=== PATIENT | female | born 1930 | race Caucasian/White ===

== ENCOUNTER 2017-10-27 11:00 | Outpatient (CLI) | payer MEDICARE, BC | END 2017-10-27 11:01 | disposition home or self-care (01) | LOC: BICMAMMO 11:00 | PROVIDERS: ATTEND Internal Medicine Rheumatology | DX: M81.0 Age-related osteoporosis without current pathological fracture (principal); M85.88 Other specified disorders of bone density and structure, other site | CPT/HCPCS: 77080 ==

== ENCOUNTER 2018-02-19 11:26 | Inpatient (IN) | payer MEDICARE, BC ==
[2018-02-19] MEDS ORDERED: Piperacillin/Tazobactam 3.375 GM VIAL ONE (11:45)
[2018-02-19 12:15] LABS: #Basophils 0.1 thou/uL (0.0-0.2); #Eosinphils 0.1 thou/uL (0.0-0.7); #Lymphocytes 1.1 thou/uL (1.20-3.40); #Monocytes 0.4 thou/uL (0.11-0.59); #Neutrophils 5.8 thou/uL (1.40-6.50); %Basophils 0.8 % (0.0-1.0); %Eosinophils 1.4 % (0.0-10.0); %Lymphocytes 14.3 % (21.0-51.0); %Monocytes 5.8 % (0.0-10.0); %Neutrophils 77.6 % (42.0-75.0); Hemoglobin 12.8 g/dL (12.0-16.0); Mean Corpuscular HGB CONC 31.4 g/dL (32.0-36.0); Mean Corpuscular Hemoglobin 27.9 pg (27.0-31.0); Mean Corpuscular Volume 88.7 fL (78.0-98.0); Mean Platelet Volume 7.8 fL (7.4-10.4); Platelet Count 171 thou/uL (130-400); RBC Distribution Width 12.1 % (11.5-14.5); White Blood Cell (WBC) Count 7.4 thou/uL (4.8-10.8)
[2018-02-19 12:23] LABS: Bilirubin Negative (Negative); Blood, Urine Negative (Negative); Clarity Clear (Clear); Glucose, Urine (Dipstick) Negative (Negative); Protein, Urine (Dipstick) Trace mg/dL (Neg-Trace)
[2018-02-19 12:25] LABS: Nitrite Unable to Interpret (Negative)
[2018-02-19 12:26] LABS: Leukocyte Unable to Interpret (Negative)
[2018-02-19 12:26] LABS: ALT (SGPT) 13 U/L (8-55); AST (SGOT) 18 U/L (5-34); Albumin 4.3 g/dL (3.4-4.8); Alkaline Phosphatase 65 U/L (40-150); Anion Gap 13 mmol/L (10-20); BUN (Urea Nitrogen) 20 mg/dL (9.8-20.1); Bilirubin, Total 0.3 mg/dL (0.2-1.2); CK (CPK) 31 U/L (29-168); Calc. Creatinine Clearance 0 mL/min (70-130); Calcium 11.1 mg/dL (7.8-10.44); Carbon Dioxide 30 mmol/L (23-31); Chloride 103 mmol/L (98-107); Estimated GFR-MDRD 52; Globulin 2.8 g/dL (2.4-3.5); Glucose 202 mg/dL (83-110); Lipase 58 U/L (8-78); Potassium 3.7 mmol/L (3.5-5.1); Protein, Total 7.1 g/dL (6.0-8.3); Sodium 142 mmol/L (136-145)
[2018-02-19 12:27] LABS: RBC/HPF 0-3 HPF (0-3); Squamous Epithelial 0-3 HPF (0-3)
[2018-02-19 12:28] LABS: CKMB 1.6 ng/mL (0-6.6); Troponin I Less than 0.010 ng/mL (< 0.028)
[2018-02-19 12:30] LABS: Hyaline Casts/LPF 0-3 HYALINE CAST LPF (0-3 Hyaline)
[2018-02-19 12:31] LABS: Bacteria/HPF Rare-Few HPF (None Seen)
[2018-02-19] MEDS ORDERED: Iopamidol 370 76% 100 ML VIAL ONE (12:32)
--- NOTE | 2018-02-19 13:13 | CT ---
ABDOMEN AND PELVIC CT SCAN WITHOUT IV CONTRAST: HISTORY: An 88-year-old female with a history of urinary tract infection, lower abdominal and back pain. FINDINGS: The lung bases are clear. Small hiatal hernia. Status post cholecystectomy. Pancreas, spleen, and adrenal glands are unremarkable as evaluated without IV contrast. Tiny punctate calcific focus in th e right kidney, possibly a very small renal calculus or possibly a vascular calcification. Bilateral renal cysts up to 2.6 cm on the right side. No evidence for acute obstruction. There is promine nt lumbar spine levoscoliosis with multilevel up to severe canal and lateral recess stenotic changes of the lumbar spine. There is fairly widespread colonic diverticulosis without evidence for acute di verticulitis. There is an approximately 1.4 cm diameter minimally hyperdense nodular focus in the le ft perineum, probably in the left labia, possibly a Bartholin gland cyst or a sebaceous cyst. IMPRESSION: Small hiatal hernia. Tiny nonobstructing right renal calculus. No acute obstruction. A 1.4 cm d iameter hyperdense nodular focus in the left perineum, probably in the left labial region. Nonspecif ic, possibly a Bartholin gland cyst or a sebaceous cyst. Levoscoliosis of the lumbar spine with mult ilevel up to severe canal and lateral recess stenotic changes. POS: DAVID
[2018-02-19] MEDS ORDERED: Sodium Chloride 0.9% 1,000 ML IV SCH (14:45)
[2018-02-19 15:51] LABS: Lactic Acid 1.1 mmol/L (0.5-2.2)
[2018-02-19 16:40] VITALS: BMI 20.6
[2018-02-19] MEDS ORDERED: Zolpidem Tartrate 5 MG TAB PO PRN (17:39)
[2018-02-19] MEDS ORDERED: Meclizine HCl 25 MG TAB PO PRN (17:39)
[2018-02-19] MEDS ORDERED: Calcium Carbonate 500 MG ChewTAB PO PRN (17:42)
[2018-02-19] MEDS ORDERED: Senokot S 8.6-50 MG TAB PO PRN (17:42)
[2018-02-19] MEDS ORDERED: Ondansetron ODT 4 MG TAB PO PRN (17:42)
[2018-02-19] MEDS ORDERED: Ondansetron PF 4 MG/2 ML Vial IVP PRN (17:42)
[2018-02-19] MEDS ORDERED: hydrALAZINE 20 MG/ML VIAL SLOW IVP PRN ×2 (17:42→17:45)
[2018-02-19] MEDS: traMADol HCl 50 MG TAB PO SCH ×2 (17:47→23:41)
[2018-02-19] MEDS: Sodium Chloride 0.9% 1,000 ML IV SCH (17:49)
[2018-02-19] MEDS: Cefepime 1 GM in Sodium Chloride 0.9% 100 ML IVPB SCH (17:54)
[2018-02-19] MEDS ORDERED: Piperacillin/Tazobactam 3.375 GM in Sodium Chloride 0.9% 100 ML IVPB SCH (20:00)
[2018-02-19] MEDS: Heparin 5,000 UNITS/ML VIAL SC SCH (20:18)
[2018-02-19] MEDS: Acetaminophen 325 MG TAB PO PRN (20:18)
--- NOTE | 2018-02-19 22:26 | HP ---
DATE OF ADMISSION: 02/19/2018 PRIMARY CARE PHYSICIAN: Dr. Gabriela Forrest. PRIMARY NEUROLOGIST: Dr. Dilan Angela. CHIEF COMPLAINT: Abdominal discomfort. HISTORY OF PRESENT ILLNESS: Patient is an 88-year-old female with recurrent UTIs, presented to the e mergency room at [facility] with above complaints. Last week, patient was seen at the Urgent Care and was diagnosed with UTI. She was started on Keflex. She received a phone call from the [facility] ent Care due to resistant UTI. Urine culture from last week showed Pseudomonas aeruginosa. She also has frequent urination. Abdominal pain is mainly in the lower quadrant radiating upwards and to the back. No fever reported. She has not been eating well. She feels generally weak. There was no co nfusion or recent fall reported. She was evaluated by Dr. Dilan Angela last month. She had Pseudo monas fluorescens UTI that was treated with oral ciprofloxacin. She had some issues with urinary ret ention at that time which attributed to ciprofloxacin. Repeat cultures after 10 days was negative at that time. PAST MEDICAL HISTORY: 1. Hypertension. 2. Degenerative joint disease. 3. Psoriasis. 4. Chronic low back pain. 5. Recurrent urinary tract infections. 6. History of fractured pelvis, status post fall. 7. Bilateral moderate carotid stenosis on the CT scan of the neck from last year. PAST SURGICAL HISTORY: 1. Hysterectomy in 1969. 2. Cholecystectomy in 2011. ALLERGIES: Patient is allergic to SULFA. CIPROFLOXACIN causes urinary retention per patient report. FAMILY HISTORY: Mother with CVA. SOCIAL HISTORY: Patient currently lives at the [facility]. No smoking. She makes her own decisio n with the help of her family. She does not have a DPOA. She is FULL code. REVIEW OF SYSTEMS: The following complete review of systems was negative, unless otherwise mentioned in the HPI or below: Constitutional: Weight loss or gain, ability to conduct usual activities. Sk in: Rash, itching. Eyes: Double vision, pain. ENT/Mouth: Nose bleeding, neck stiffness, pain, te nderness. Cardiovascular: Palpitations, dyspnea on exertion, orthopnea. Respiratory: Shortness of breath, wheezing, cough, hemoptysis, fever, or night sweats. Gastrointestinal: Poor appetite, abdo sourav pain, heartburn, nausea, vomiting, constipation, or diarrhea. Genitourinary: Urgency, frequen cy, dysuria, nocturia. Musculoskeletal: Pain, swelling. Neurologic/Psychiatric: Anxiety, depressi on. Allergy/Immunologic: Skin rash, bleeding tendency. PHYSICAL EXAMINATION: VITAL SIGNS: In the emergency room showed temperature 98.3, respirations 16, pulse rate of 73, blood pressure of 178/89 with O2 saturation 98% on room air. GENERAL: An 88-year-old female in no apparent distress. HEENT: Atraumatic, normocephalic. Sclerae anicteric. Moist mucous membrane, no oral lesion. NECK: Supple, no JVD, no carotid bruit. LUNGS: Clear to auscultation bilaterally. No wheezing, rales, or rhonchi. HEART: S1, S2 present. Regular rate and rhythm. No rubs or gallops appreciated, 2/6 systolic murmu r noted over the mitral area. ABDOMEN: Abdomen was soft, mild lower quadrant tenderness, no rebound, guarding, no costovertebral a ngle tenderness. EXTREMITIES: No edema or calf tenderness. NEUROLOGIC: Grossly nonfocal, moves all four extremities. PSYCHIATRY: Alert, awake, oriented x3. SKIN: Warm and dry. LYMPH NODES: No palpable lymph nodes in the neck. PERIPHERAL VASCULAR: Radial pulses palpable bilaterally. MUSCULOSKELETAL: No joint swelling or tenderness. LABORATORY DATA AND X-RAY FINDINGS: 1. CBC showed WBC 7.4 with hemoglobin 12.8, hematocrit 40.8, platelet 171. 2. Chemistries showed sodium 142, potassium 3.7, chloride 103, bicarbonate 30, BUN 20, creatinine 1. 3. Lactic acid 2.1. 4. Troponins were negative. 5. Urine culture from last week showed Pseudomonas aeruginosa. 6. CT scan of the abdomen and pelvis without contrast showed tiny nonobstructing right renal calculu s with small hiatal hernia and 1.4 cm hyperdense nodular focus in the left perineum probably a Bartho ren cyst or sebaceous cyst. 7. EKG by my review showed sinus rhythm with incomplete right bundle branch block with nonspecific S T-T wave changes. IMPRESSION: 1. Pseudomonas aeruginosa urinary tract infection. Please note that patient failed outpatient treat ment. 2. History of recurrent urinary tract infections. 3. Diabetes mellitus, type 2. 4. Hypertension. 5. Osteoporosis. 6. Hypothyroidism. 7. Chronic insomnia. 8. Psoriasis. 9. Chronic pain syndrome. 10. Small hiatal hernia. 11. An 1.4 cm hypodense lesion in the left perineum suspected Bartholin gland cyst or sebaceous cyst . 12. Hypercalcemia, chronic. PLAN: Patient will be monitored on the medical floor. She will be started on cefepime. We will jaimie ck postvoid residual. Gentle intravenous hydration. We will hold oral diuretics for now. Consult p hysical therapy, occupation therapy. We will discuss with [facility] Hospital[facility] regarding possible Jc holin gland cyst or a sebaceous cyst. Fall precautions. Vital signs every shift. Blood and urine c ultures have been sent. CURRENT HOME MEDICATIONS: Tramadol as needed, amlodipine 5 mg daily, ferrous sulfate 325 mg daily, f olic acid 1 mg daily, Lasix 20 mg b.i.d., glipizide 2.5 mg daily, ibandronate 150 mg once a month, le flunomide 10 mg daily, levothyroxine 25 mcg daily, meclizine as needed, metformin 500 mg b.i.d., Ambi en as needed.
[2018-02-20] MEDS: Sodium Chloride 0.9% 1,000 ML IV SCH ×3 (03:29→23:33)
[2018-02-20] MEDS: Acetaminophen 325 MG TAB PO PRN (03:30)
[2018-02-20 04:58] LABS: #Eosinphils 0.2 thou/uL (0.0-0.7); #Lymphocytes 1.1 thou/uL (1.20-3.40); #Monocytes 0.4 thou/uL (0.11-0.59); #Neutrophils 2.2 thou/uL (1.40-6.50); %Basophils 1.3 % (0.0-1.0); %Eosinophils 4.4 % (0.0-10.0); %Lymphocytes 27.6 % (21.0-51.0); %Monocytes 9.8 % (0.0-10.0); Mean Corpuscular HGB CONC 31.8 g/dL (32.0-36.0); Mean Corpuscular Hemoglobin 29.6 pg (27.0-31.0); Mean Corpuscular Volume 92.9 fL (78.0-98.0); Mean Platelet Volume 7.7 fL (7.4-10.4); Platelet Count 153 thou/uL (130-400); RBC Distribution Width 11.9 % (11.5-14.5); Red Blood Cell (RBC) Count 3.73 mill/uL (4.20-5.40); White Blood Cell (WBC) Count 3.9 thou/uL (4.8-10.8)
[2018-02-20 05:02] LABS: Anion Gap 9 mmol/L (10-20); BUN (Urea Nitrogen) 16 mg/dL (9.8-20.1); Calc. Creatinine Clearance 37 mL/min (70-130); Calcium 9.8 mg/dL (7.8-10.44); Carbon Dioxide 26 mmol/L (23-31); Chloride 111 mmol/L (98-107); Estimated GFR-MDRD 68; Glucose 88 mg/dL (83-110); Magnesium 1.6 mg/dL (1.6-2.6); Potassium 3.8 mmol/L (3.5-5.1); Sodium 142 mmol/L (136-145)
[2018-02-20] MEDS: Levothyroxine Sodium 25 MCG TAB PO SCH (05:16)
[2018-02-20] MEDS: traMADol HCl 50 MG TAB PO SCH ×4 (05:16→23:31)
[2018-02-20] MEDS ORDERED: glipiZIDE 5 MG TAB PO SCH (07:30)
[2018-02-20] MEDS: Polyethylene Glycol 3350 17 GM Packet PO SCH (08:22)
[2018-02-20] MEDS: Folic Acid 1 MG TAB PO SCH (08:26)
[2018-02-20] MEDS: Amlodipine 5 MG TAB PO SCH (08:27)
[2018-02-20] MEDS: Leflunomide 10 mg Tablet PO SCH (08:28)
[2018-02-20] MEDS: Aspirin 81 mg Enteric Coated Tablet PO SCH (08:28)
[2018-02-20] MEDS: Heparin 5,000 UNITS/ML VIAL SC SCH ×2 (08:29→20:09)
[2018-02-20] MEDS ORDERED: Magnesium 2 GM/50 ML 2 GM in Premix Bag 1 BAG IVPB SCH (08:45)
[2018-02-20] MEDS ORDERED: Prevnar 13-Val Conj/PF 0.5 ML SYRINGE IM ONE (09:00)
[2018-02-20] MEDS: Cefepime 1 GM in Sodium Chloride 0.9% 100 ML IVPB SCH (17:50)
--- NOTE | 2018-02-20 20:55 | PDOC.PN ---
- Subjective Encounter Start Date: 02/20/18 Encounter Start Time: 12:00 Patient seen and examined for UTI. Abd pain improving. No new complaints. No overnight events - Objective Resuscitation Status: Resuscitation Status FULL:Full Resuscitation MAR Reviewed: Yes Vital Signs & Weight: Vital Signs (12 hours) Temp Pulse Resp BP Pulse Ox 02/20/18 19:18 98.6 F 60 20 166/77 H 98 02/20/18 16:48 98.3 F 60 16 144/67 H 98 02/20/18 12:22 98.0 F 57 L 16 130/70 94 L Weight Admit Weight 105 lb 13.15 oz Weight 105 lb 13.15 oz I&O: 02/19/18 02/20/18 02/21/18 06:59 06:59 06:59 Intake Total 1800 Output Total 700 Balance 1100 Result Diagrams: 02/20/18 04:26 02/20/18 04:26 Phys Exam - Physical Examination Constitutional: NAD Respiratory: no wheezing, no rhonchi Cardiovascular: RRR, no rub Gastrointestinal: soft, non-tender, positive bowel sounds Musculoskeletal: no edema Neurological: moves all 4 limbs Dx/Plan - Plan DVT proph w/SCDs IMPRESSION: 1. Pseudomonas aeruginosa UTI - failed outpatient treatment. 2. History of recurrent urinary tract infections. 3. Diabetes mellitus, type 2. 4. Hypertension. 5. Hypomagnesemia 6. Hypothyroidism. 7. Chronic insomnia. 8. Psoriasis. 9. Chronic pain syndrome. 10. Small hiatal hernia. 11. An 1.4 cm hypodense lesion in the left perineum suspected Bartholin gland cyst or sebaceous cyst. 12. Osteoporosis/Hypercalcemia, chronic. PLAN: Cont Cefepime Cont IVF Replace Magnessium Case d/w Urology Dr Angela - He suggested to discontinue antibiotics after 3 days. Cont current meds as below Review of Systems - Review of Systems Respiratory: negative: Cough, Dry, Shortness of Breath, Hemoptysis, SOB with Excertion, Pleuritic Pain, Sputum, Wheezing Cardiovascular: negative: chest pain, palpitations, orthopnea, paroxysmal nocturnal dyspnea, edema, light headedness, other Gastrointestinal: negative: Nausea, Vomiting, Abdominal Pain, Diarrhea, Constipation, Melena, Hematochezia, Other - Medications/Allergies Allergies/Adverse Reactions: Allergies Allergy/AdvReac Type Severity Reaction Status Date / Time Sulfa (Sulfonamide Allergy Verified 02/19/18 16:55 Antibiotics) sulfamethoxazole Allergy Verified 02/19/18 16:55 [From Bactrim] trimethoprim [From Bactrim] Allergy Verified 02/19/18 16:55 Medications: Current Medications Acetaminophen (Tylenol) 650 mg PO Q4H PRN PRN Reason: Headache/Fever/Mild Pain (1-3) Last Admin: 02/20/18 03:30 Dose: 650 mg Amlodipine Besylate (Norvasc) 5 mg PO DAILY [facility] Last Admin: 02/20/18 08:27 Dose: 5 mg Aspirin (Ecotrin) 81 mg PO DAILY [facility] Last Admin: 02/20/18 08:28 Dose: 81 mg Calcium Carbonate (Tums) 1,000 mg PO Q4H PRN PRN Reason: Heartburn or Indigestion Folic Acid (Folvite) 1 mg PO DAILY [facility] Last Admin: 02/20/18 08:26 Dose: 1 mg Glipizide (Glucotrol) 2.5 mg PO DAILY-AC [facility] Last Admin: 02/20/18 08:27 Dose: 2.5 mg Heparin Sodium (Porcine) (Heparin) 5,000 units SC BID [facility] Last Admin: 02/20/18 20:09 Dose: 5,000 units Hydralazine HCl (Apresoline) 10 mg SLOW IVP Q4H PRN PRN Reason: SBP Greater Than 180 Sodium Chloride (Normal Saline 0.9%) 1,000 mls @ 50 mls/hr IV .Q20H [facility] Last Admin: 02/20/18 11:14 Dose: Not Given Cefepime HCl 1 gm/ Sodium (Chloride) 100 mls @ 200 mls/hr IVPB 1800 [facility] Last Admin: 02/20/18 17:50 Dose: 100 mls Leflunomide (Arava) 10 mg PO DAILY [facility] Last Admin: 02/20/18 08:28 Dose: 10 mg Levothyroxine Sodium (Synthroid) 25 mcg PO 0600 [facility] Last Admin: 02/20/18 05:16 Dose: 25 mcg Meclizine HCl (Antivert) 25 mg PO TID PRN PRN Reason: Dizziness Miscellaneous Medication (Pharmacy To Dose) 1 each IVPB ONE PRN PRN Reason: Pharmacy to dose Stop: 03/01/18 17:43 Ondansetron HCl (Zofran Odt) 4 mg PO Q6H PRN PRN Reason: Nausea/Vomiting Ondansetron HCl (Zofran) 4 mg IVP Q6H PRN PRN Reason: Nausea/Vomiting Polyethylene Glycol (Miralax) 17 gm PO DAILY [facility] Last Admin: 02/20/18 08:22 Dose: 17 gm Senna/Docusate Sodium (Senokot S) 2 tab PO BID PRN PRN Reason: Constipation Tramadol HCl (Ultram) 50 mg PO Q6HR [facility] Last Admin: 02/20/18 17:53 Dose: 50 mg Zolpidem Tartrate (Ambien) 5 mg PO HS PRN PRN Reason: Insomnia
[2018-02-21] MEDS: traMADol HCl 50 MG TAB PO SCH ×2 (05:47→11:59)
[2018-02-21] MEDS: Levothyroxine Sodium 25 MCG TAB PO SCH (05:47)
[2018-02-21] MEDS: Amlodipine 5 MG TAB PO SCH (08:32)
[2018-02-21] MEDS: Leflunomide 10 mg Tablet PO SCH (08:33)
[2018-02-21] MEDS: metFORMIN 500 MG TAB PO SCH ×2 (08:33→16:46)
[2018-02-21] MEDS: Folic Acid 1 MG TAB PO SCH (08:33)
[2018-02-21] MEDS: Polyethylene Glycol 3350 17 GM Packet PO SCH (08:33)
[2018-02-21] MEDS: Aspirin 81 mg Enteric Coated Tablet PO SCH (09:06)
[2018-02-21] MEDS ORDERED: traMADol HCl 50 MG TAB PO PRN (14:20)
[2018-02-21] MEDS ORDERED: Cefepime 1 GM in Sodium Chloride 0.9% 100 ML IVPB SCH ×2 (14:30→18:00)
--- NOTE | 2018-02-21 17:44 | PDOC.PN ---
- Subjective Encounter Start Date: 02/21/18 Encounter Start Time: 14:00 Patient seen and examined for UTI. No new complaints. No overnight events - Objective Resuscitation Status: Resuscitation Status FULL:Full Resuscitation MAR Reviewed: Yes Vital Signs & Weight: Vital Signs (12 hours) Temp Pulse Resp BP BP Pulse Ox 02/21/18 16:31 98.3 F 60 16 148/77 H 96 02/21/18 12:47 98.2 F 60 14 148/73 H 99 02/21/18 08:32 54 L 154/66 H 02/21/18 08:30 95 02/21/18 08:04 98.2 F 54 L 16 154/66 H 95 Weight Admit Weight 105 lb 13.15 oz Weight 105 lb 13.15 oz I&O: 02/20/18 02/21/18 02/22/18 06:59 06:59 06:59 Intake Total 1800 1350 Output Total 700 Balance 1100 1350 Result Diagrams: 02/20/18 04:26 02/20/18 04:26 Phys Exam - Physical Examination Constitutional: NAD Respiratory: no wheezing, no rhonchi Cardiovascular: RRR, no rub Gastrointestinal: soft, non-tender, positive bowel sounds Musculoskeletal: no edema Neurological: moves all 4 limbs Dx/Plan - Plan DVT proph w/SCDs IMPRESSION: 1. Pseudomonas aeruginosa UTI - failed outpatient treatment. 2. History of recurrent urinary tract infections. 3. Diabetes mellitus, type 2. 4. Hypertension. 5. Hypomagnesemia 6. Hypothyroidism. 7. Chronic insomnia. 8. Psoriasis. 9. Chronic pain syndrome. 10. Small hiatal hernia. 11. An 1.4 cm hypodense lesion in the left perineum suspected Bartholin gland cyst or sebaceous cyst. 12. Osteoporosis/Hypercalcemia, chronic. PLAN: Cont Cefepime DC IVF Consult ID Cont current meds as below Microbiology 02/19/18 12:12 Urine clean catch Urine Culture - Preliminary Gram Negative Jean-Paul 02/19/18 12:03 Venous blood - Right Arm Blood Culture - Preliminary NO GROWTH AT 48 HOURS 02/19/18 11:53 Venous blood - Left Arm Blood Culture - Preliminary NO GROWTH AT 48 HOURS Review of Systems - Review of Systems Cardiovascular: negative: chest pain, palpitations, orthopnea, paroxysmal nocturnal dyspnea, edema, light headedness, other Gastrointestinal: negative: Nausea, Vomiting, Abdominal Pain, Diarrhea, Constipation, Melena, Hematochezia, Other - Medications/Allergies Allergies/Adverse Reactions: Allergies Allergy/AdvReac Type Severity Reaction Status Date / Time Sulfa (Sulfonamide Allergy Verified 02/19/18 16:55 Antibiotics) sulfamethoxazole Allergy Verified 02/19/18 16:55 [From Bactrim] trimethoprim [From Bactrim] Allergy Verified 02/19/18 16:55 Medications: Current Medications Acetaminophen (Tylenol) 650 mg PO Q4H PRN PRN Reason: Headache/Fever/Mild Pain (1-3) Last Admin: 02/20/18 03:30 Dose: 650 mg Amlodipine Besylate (Norvasc) 5 mg PO DAILY [facility] Last Admin: 02/21/18 08:32 Dose: 5 mg Aspirin (Ecotrin) 81 mg PO DAILY [facility] Last Admin: 02/21/18 09:06 Dose: 81 mg Calcium Carbonate (Tums) 1,000 mg PO Q4H PRN PRN Reason: Heartburn or Indigestion Folic Acid (Folvite) 1 mg PO DAILY [facility] Last Admin: 02/21/18 08:33 Dose: 1 mg Hydralazine HCl (Apresoline) 10 mg SLOW IVP Q4H PRN PRN Reason: SBP Greater Than 180 Sodium Chloride (Normal Saline 0.9%) 1,000 mls @ 50 mls/hr IV .Q20H [facility] Last Admin: 02/20/18 23:33 Dose: 1,000 mls Cefepime HCl 1 gm/ Sodium (Chloride) 100 mls @ 200 mls/hr IVPB 1800 [facility] Last Admin: 02/21/18 16:47 Dose: 100 mls Leflunomide (Arava) 10 mg PO DAILY [facility] Last Admin: 02/21/18 08:33 Dose: 10 mg Levothyroxine Sodium (Synthroid) 25 mcg PO 0600 [facility] Last Admin: 02/21/18 05:47 Dose: 25 mcg Meclizine HCl (Antivert) 25 mg PO TID PRN PRN Reason: Dizziness Metformin HCl (Glucophage) 500 mg PO BID[facility] Last Admin: 02/21/18 16:46 Dose: 500 mg Miscellaneous Medication (Pharmacy To Dose) 1 each IVPB ONE PRN PRN Reason: Pharmacy to dose Stop: 03/01/18 17:43 Ondansetron HCl (Zofran Odt) 4 mg PO Q6H PRN PRN Reason: Nausea/Vomiting Ondansetron HCl (Zofran) 4 mg IVP Q6H PRN PRN Reason: Nausea/Vomiting Polyethylene Glycol (Miralax) 17 gm PO DAILY [facility] Last Admin: 02/21/18 08:33 Dose: 17 gm Senna/Docusate Sodium (Senokot S) 2 tab PO BID PRN PRN Reason: Constipation Tramadol HCl (Ultram) 50 mg PO Q6HR PRN PRN Reason: Pain Zolpidem Tartrate (Ambien) 5 mg PO HS PRN PRN Reason: Insomnia
[2018-02-21] MEDS: Acetaminophen 325 MG TAB PO PRN (21:13)
[2018-02-22 04:14] LABS: #Eosinphils 0.3 thou/uL (0.0-0.7); #Lymphocytes 1.1 thou/uL (1.20-3.40); #Monocytes 0.5 thou/uL (0.11-0.59); #Neutrophils 2.4 thou/uL (1.40-6.50); %Basophils 0.4 % (0.0-1.0); %Lymphocytes 26.5 % (21.0-51.0); %Monocytes 11.6 % (0.0-10.0); %Neutrophils 55.4 % (42.0-75.0); Hemoglobin 10.3 g/dL (12.0-16.0); Mean Corpuscular HGB CONC 31.7 g/dL (32.0-36.0); Mean Corpuscular Hemoglobin 29.9 pg (27.0-31.0); Mean Corpuscular Volume 94.3 fL (78.0-98.0); Mean Platelet Volume 7.8 fL (7.4-10.4); Platelet Count 143 thou/uL (130-400); RBC Distribution Width 11.9 % (11.5-14.5); Red Blood Cell (RBC) Count 3.44 mill/uL (4.20-5.40); White Blood Cell (WBC) Count 4.3 thou/uL (4.8-10.8)
[2018-02-22 04:25] LABS: Anion Gap 7 mmol/L (10-20); BUN (Urea Nitrogen) 19 mg/dL (9.8-20.1); Calc. Creatinine Clearance 40 mL/min (70-130); Calcium 9.4 mg/dL (7.8-10.44); Carbon Dioxide 30 mmol/L (23-31); Chloride 109 mmol/L (98-107); Estimated GFR-MDRD 75; Glucose 95 mg/dL (83-110); Magnesium 1.6 mg/dL (1.6-2.6); Potassium 4.1 mmol/L (3.5-5.1); Sodium 142 mmol/L (136-145)
[2018-02-22] MEDS: Levothyroxine Sodium 25 MCG TAB PO SCH (06:14)
[2018-02-22] MEDS ORDERED: Magnesium 2 GM/50 ML 2 GM in Premix Bag 1 BAG IVPB SCH (08:00)
[2018-02-22] MEDS: metFORMIN 500 MG TAB PO SCH (08:38)
[2018-02-22] MEDS: Polyethylene Glycol 3350 17 GM Packet PO SCH (08:39)
[2018-02-22] MEDS: Aspirin 81 mg Enteric Coated Tablet PO SCH (08:39)
[2018-02-22] MEDS: Amlodipine 5 MG TAB PO SCH (08:39)
[2018-02-22] MEDS: Folic Acid 1 MG TAB PO SCH (08:39)
[2018-02-22] MEDS: Leflunomide 10 mg Tablet PO SCH (08:39)
--- NOTE | 2018-02-22 15:38 | CON ---
DATE OF CONSULTATION: 02/22/2018 REASON FOR CONSULTATION: Possible urinary tract infection. HISTORY OF PRESENT ILLNESS: An 88-year-old with history of hypertension, DJD, psoriasis. She was brought in because of development of pain in the perineal area. When I tried to get her to be more precise, she was not clear if it was pain during urination or just pain in the outside area of the vaginal introitus. She was seen elsewhere and had urine culture apparently Pseudomonas aeruginosa was retrieved to this organism was melendez susceptible and she was treated with quinolones without improvement. There is no reported fever or chills and there are some concerns with urinary retention in the past. On arrival, she had a BP of 170/80, O2 sat 98% with a respiratory rate 16, pulse of 73. The exam was fairly unremarkable as described in the admit note and initial laboratory results with a white cell count 7.4 with a normal differential, maybe mild neutrophil percentage increase, the total neutrophil count was normal. The chemistry was not particularly remarkable except for hyperglycemia and some elevation in calcium. Urinalysis with 4-6 wbc's and rare urine bacteria. She was treated with antimicrobial therapy with cefepime and she noted improvement of the perineal pain. A CT scan was done on admission on 02/19/2018 and this showed a 1.4 cm hyperdense nodular focus in the left perineum, probably in the left labial region. Currently, Ms. Lake is feeling well. She denies any pain. No headaches, no visual symptoms, sore throat, odynophagia, dysphagia, no cough or sputum production or chest pain, no abdominal pain or diarrhea. No joint symptoms other than her usual chronic osteoarthrosis. PAST MEDICAL HISTORY: Includes hypertension, DJD, psoriasis, back pain, history of UTIs, although the patient does not recall any prior UTIs, pelvis fracture, carotid stenosis. PAST SURGICAL HISTORY: Hysterectomy, cholecystectomy. ALLERGIES: SULFA DRUGS with rash. CIPROFLOXACIN reportedly caused urinary retention. FAMILY HISTORY: CVA. SOCIAL HISTORY: Never a smoker. Lives in assisted living. MEDICATION LIST: Tylenol, Norvasc, Ecotrin, Tums, cefepime, Folvite, Apresoline , Arava, Synthroid, Antivert, Glucophage, Zofran, Marlex, Senokot, Ultram, Ambien. PHYSICAL EXAMINATION: VITAL SIGNS: In the hospital, she has been afebrile. Other vital signs with mild elevation in systolic blood pressure. SKIN: Not remarkable. I evaluated her vulvar area. There was no evidence of erythema or swelling. Obviously she did have a Bartholin gland cyst which is not there anymore. No lymphadenopathy. HEENT: Noncontributory. LUNGS: Clear. HEART: Normal. ABDOMEN: Soft, not distended. EXTREMITIES: She moves all extremities equally. NEUROLOGIC: Cognitive function appears to be intact. LABORATORY DATA: The repeat white cell count 4.3, hemoglobin 10.3, platelets 143 with normal differential. ASSESSMENT: 1. Hypertension. 2. History of prior urinary tract infections. 3. Perineal pain which has resolved. 4. Fairly unremarkable urinalysis. 5. Urinary tract colonization versus a true invasive infection. DISCUSSION: In view of the findings in the CT scan and now the absence of any findings there in the physical exam, it is likely the patient had a distended Bartholin gland due to obstruction which resolved spontaneously. I do not see any evidence of inflammation at this point. This is the likely reason for the patient's reported pain and I would advise discontinuation of antimicrobial therapy at this point in time and follow up in the outpatient setting. I do not see any evidence to suggest urinary retention at this point in time. JERRODD
[2018-02-22 17:47] VITALS: BP 150/81; TEMP 97.9
--- NOTE | 2018-02-23 07:16 | DIS ---
DATE OF ADMISSION: 02/19/2018 DATE OF DISCHARGE: 02/22/2018 DISCHARGE DISPOSITION: Home. FOLLOWUP: Follow up with primary care physician, Dr. Gabriela Forrest in 1 week. Follow up with Dr. Madalyn Angela in 2 weeks. ALLERGIES: Patient is allergic to SULFA. DISCHARGE MEDICATIONS: Same as admission medications. BRIEF HOSPITAL COURSE: The patient is an 88-year-old female with recurrent UTIs, presented to the [facility] with abdominal discomfort. She was recently at an urgent care where she was found to have a P seudomonas aeruginosa UTI. She received a phone call from the urgent care to get admitted to the [facility]. Please refer to the history and physical dated 02/19/2018 for further details. The patient was admitted to the hospital with a diagnosis of Pseudomonas aeruginosa UTI. She was sta rted on cefepime. Her abdominal pain improved the next day. A CT scan of the abdomen noncontrast in the emergency room showed a 1.4 cm nodular focus in the left perineum, probably a Bartholin cyst. S he showed good improvement with antibiotics. She was seen by Infectious Disease, Dr. Stewart. Dr. Jamie weir recommended discontinuation of the antibiotics. She was advised to follow up with [employer] [facility] for her Bar tholin cyst. FINAL DIAGNOSES: 1. Pseudomonas aeruginosa urinary tract infection. Patient completed 3 days of cefepime. Antibiot ics have been discontinued per Infectious Disease recommendation. 2. History of recurrent urinary tract infections. 3. Diabetes mellitus type 2. 4. Hypertension. 5. Hypomagnesemia. 6. Hypothyroidism. 7. Chronic insomnia. 8. Psoriasis. 9. Chronic pain syndrome. 10. Small hiatal hernia. 11. A 1.4 cm hypodense lesion in the left perineum suspected to be a Bartholin gland cyst or sebaceo us cyst. An outpatient [employer] [employer] [facility] followup is recommended. 12. Osteoporosis. 13. Chronic hypercalcemia. Total time coordinating the discharge of this patient was 37 minutes.
== END 2018-02-22 15:40 | disposition home or self-care (01) | DRG 690 ==
LOC: SCSER 11:26 → T4-A 14:30
PROVIDERS: ADMIT Internal Medicine; ATTEND Internal Medicine
DX: N39.0 Urinary tract infection, site not specified (principal); B96.5 Pseudomonas (aeruginosa) (mallei) (pseudomallei) as the cause of diseases classified elsewhere; E11.9 Type 2 diabetes mellitus without complications; I10 Essential (primary) hypertension; E83.42 Hypomagnesemia; E03.9 Hypothyroidism, unspecified; F51.04 Psychophysiologic insomnia; L40.9 Psoriasis, unspecified; G89.4 Chronic pain syndrome; K44.9 Diaphragmatic hernia without obstruction or gangrene; M81.0 Age-related osteoporosis without current pathological fracture; E83.52 Hypercalcemia; Z91.81 History of falling; F41.9 Anxiety disorder, unspecified; M19.90 Unspecified osteoarthritis, unspecified site; Z87.81 Personal history of (healed) traumatic fracture; N75.0 Cyst of Bartholin's gland; L72.3 Sebaceous cyst
CPT/HCPCS: 36415; 36416; 74176; 80048; 80053; 81003; 81015; 82553; 83605; 83690; 83735; 84484; 85025; 87040; 87077; 87086; 87186; 93005; G8978-GP-CJ; G8979-GP-CJ; G8980-GP-CJ; G8987-GO-CI; G8988-GO-CI; G8989-GO-CI; J0692; J1644; J2270; J2543; J7050

== ENCOUNTER 2019-09-12 09:05 | Emergency (ER) | payer MEDICARE, BC ==
[2019-09-12 10:12] LABS: #Eosinphils 0.2 thou/uL (0.0-0.7); #Lymphocytes 0.9 thou/uL (1.20-3.40); #Monocytes 0.4 thou/uL (0.11-0.59); #Neutrophils 3.1 thou/uL (1.40-6.50); %Basophils 0.8 % (0.0-1.0); %Eosinophils 3.5 % (0.0-10.0); %Lymphocytes 19.8 % (21.0-51.0); %Monocytes 8.2 % (0.0-10.0); %Neutrophils 67.7 % (42.0-75.0); Hemoglobin 11.8 g/dL (12.0-16.0); Mean Corpuscular HGB CONC 33.5 g/dL (32.0-36.0); Mean Corpuscular Hemoglobin 31.2 pg (27.0-31.0); Mean Corpuscular Volume 93.2 fL (78.0-98.0); Mean Platelet Volume 8.5 fL (7.4-10.4); Platelet Count 164 thou/uL (130-400); RBC Distribution Width 12.4 % (11.5-14.5); Red Blood Cell (RBC) Count 3.77 mill/uL (4.20-5.40); White Blood Cell (WBC) Count 4.6 thou/uL (4.8-10.8)
[2019-09-12 10:34] LABS: ALT (SGPT) 9 U/L (8-55); AST (SGOT) 15 U/L (5-34); Albumin 3.6 g/dL (3.4-4.8); Alkaline Phosphatase 70 U/L (40-110); Anion Gap 12 mmol/L (10-20); BUN (Urea Nitrogen) 15 mg/dL (9.8-20.1); Bilirubin, Total 0.4 mg/dL (0.2-1.2); Calc. Creatinine Clearance 0 mL/min (70-130); Calcium 10.3 mg/dL (7.8-10.44); Carbon Dioxide 25 mmol/L (23-31); Chloride 109 mmol/L (98-107); Estimated GFR-MDRD 68; Globulin 2.6 g/dL (2.4-3.5); Glucose 105 mg/dL (83-110); Potassium 4.1 mmol/L (3.5-5.1); Protein, Total 6.2 g/dL (6.0-8.3); Sodium 142 mmol/L (136-145)
[2019-09-12] MEDS ORDERED: Meclizine HCl 25 MG TAB ONE (11:38)
[2019-09-12 11:51] LABS: Bacteria/HPF 3+ HPF (None Seen); Bilirubin Negative (Negative); Blood, Urine 1+ (Negative); Clarity Clear (Clear); Glucose, Urine (Dipstick) Normal (Negative); Leukocyte 500 Leu/uL (Negative); Nitrite 2+ (Negative); Protein, Urine (Dipstick) Negative (Neg-Trace); RBC/HPF 21-50 HPF (0-3); Squamous Epithelial 0-3 HPF (0-3); Urobilinogen Normal mg/dL (Less than 2)
[2019-09-12] MEDS ORDERED: cefTRIAXone\\ROCEPHIN 1 GM VIAL ONE (12:38)
== END 2019-09-12 14:00 | disposition home or self-care (01) ==
LOC: ERS 09:05
DX: R55 Syncope and collapse (principal); I10 Essential (primary) hypertension; E11.9 Type 2 diabetes mellitus without complications; F41.9 Anxiety disorder, unspecified; Z79.84 Long term (current) use of oral hypoglycemic drugs; Z79.891 Long term (current) use of opiate analgesic; Z79.899 Other long term (current) drug therapy
CPT/HCPCS: 36415; 51701; 80053; 81003; 81015; 85025; 87077; 87086; 87186; 93005; 96361; 96365; J0696

== ENCOUNTER 2019-11-02 12:00 | Observation (INO) | payer MEDICARE, BC, OTHER ==
[2019-11-02 12:30] LABS: #Eosinphils 0.1 thou/uL (0.0-0.7); #Lymphocytes 0.9 thou/uL (1.20-3.40); #Monocytes 0.6 thou/uL (0.11-0.59); #Neutrophils 7.3 thou/uL (1.40-6.50); %Basophils 0.2 % (0.0-1.0); %Eosinophils 0.6 % (0.0-10.0); %Lymphocytes 9.7 % (21.0-51.0); %Neutrophils 82.4 % (42.0-75.0); Hemoglobin 12.1 g/dL (12.0-16.0); Mean Corpuscular HGB CONC 32.4 g/dL (32.0-36.0); Mean Corpuscular Hemoglobin 30.3 pg (27.0-31.0); Mean Corpuscular Volume 93.6 fL (78.0-98.0); Mean Platelet Volume 8.5 fL (7.4-10.4); Platelet Count 165 thou/uL (130-400); RBC Distribution Width 12.7 % (11.5-14.5); White Blood Cell (WBC) Count 8.8 thou/uL (4.8-10.8)
--- NOTE | 2019-11-02 12:46 | RAD ---
PORTABLE CHEST: HISTORY: Syncope, fall. FINDINGS: The patient is rotated on this exam. Heart size is enlarged. There are atherosclerotic changes of t he aorta. The lungs are clear of infiltrates. No signs of failure. The bones are demineralized. IMPRESSION: Cardiomegaly. POS: MORIAH
[2019-11-02 12:51] LABS: ALT (SGPT) 7 U/L (8-55); AST (SGOT) 15 U/L (5-34); Albumin 3.8 g/dL (3.4-4.8); Alkaline Phosphatase 88 U/L (40-110); Anion Gap 12 mmol/L (10-20); BUN (Urea Nitrogen) 17 mg/dL (9.8-20.1); Bilirubin, Total 0.5 mg/dL (0.2-1.2); CK (CPK) 95 U/L (29-168); Calc. Creatinine Clearance 0 mL/min (70-130); Calcium 9.9 mg/dL (7.8-10.44); Carbon Dioxide 27 mmol/L (23-31); Chloride 106 mmol/L (98-107); Estimated GFR-MDRD 61; Globulin 2.4 g/dL (2.4-3.5); Glucose 121 mg/dL (83-110); Potassium 4.5 mmol/L (3.5-5.1); Protein, Total 6.2 g/dL (6.0-8.3); Sodium 140 mmol/L (136-145)
[2019-11-02 13:14] LABS: CKMB 4.3 ng/mL (0-6.6)
[2019-11-02] MEDS ORDERED: Acetaminophen 325 MG TAB PO PRN (13:41)
[2019-11-02] MEDS ORDERED: Ondansetron PF 4 MG/2 ML Vial IVP PRN (13:41)
[2019-11-02] MEDS ORDERED: Ondansetron ODT 4 MG TAB PO PRN (13:41)
[2019-11-02] MEDS ORDERED: Calcium Carbonate 500 MG ChewTAB PO PRN (13:41)
--- NOTE | 2019-11-02 13:41 | PDOC.HHP ---
Hospitalist HPI - History of Present Illness Syncope/CP History of Present Illness: PCP - Enoch Fernandez is poor historian - History limited. Shreya Lake is an 89 year old female with HTN, HLD and DM2 who presents to the ED for an episode of syncope. She reports that the day before yesterday (2019) she felt dizzy when she was getting her breakfast in the half-way she stays in. At 8 AM she went to go retrieve her food and she ate her meal. One hour later she says she began to feel dizzy and was then lying down on the couch at her half-way. Unclear whether she lost consciousness. Per daughter , Pt had 5 episodes of fall in the last 4-5 weeks. No fever, sick contacts, palpitations or recent immobilization reported. Again, Pt is a very poor historian. ED Course: VITAL SIGNS Sat Nov 02, 2019 12:03 CHANDRA Nogueira Oswaldo BP: 177/85, MAP: 115, Pulse: 90, Resp: 20, Temp: 98.9 (Oral), O2 sat: 97 on ( Room Air) Hospitalist ROS - Review of Systems Constitutional: denies: fever, chills, sweats, weakness, malaise, other Eyes: reports: vision change. denies: pain, conjunctivae inflammation, eyelid inflammation, redness, other Respiratory: denies: cough, dry, shortness of breath, hemoptysis, SOB with excertion, pleuritic pain, sputum, wheezing, other Cardiovascular: reports: edema (bilateral swelling in both legs). denies: chest pain, palpitations, orthopnea, paroxysmal noc. dyspnea, light headedness, other Gastrointestinal: denies: nausea, vomiting, abdominal pain, diarrhea, constipation, melena, hematochezia, other Neurological: denies: weakness, numbness, change in speech, confusion, seizures All other systems reviewed; all pertinent +/- noted in HPI/Subj - Medication Medications: levothyroxine oral Sat Nov 02, 2019 12:59 CHANDRA Nogueira Oswaldo tablet : Strength - 25 mcg : ORAL Patient Dose: 1 tab(s) Oral once a day. ferrous sulfate Sat Nov 02, 2019 12:59 CHANDRA Nogueira Oswaldo tablet : Strength - 200 mg : ORAL Patient Dose: 25 mg Oral once a day. furosemide oral Sat Nov 02, 2019 12:59 CHANDRA Nogueira, Asad tablet : Strength - 20 mg : ORAL Patient Dose: 20 mg Oral 2 times a day (before meals). amLODIPine Sat Nov 02, 2019 12:59 CHANDRA Nogueira, Asad tablet : Strength - 5 mg : ORAL Patient Dose: 5 mg Oral once a day. metFORMIN Sat Nov 02, 2019 12:59 CHANDRA Nogueira, Asad tablet : Strength - 500 mg : ORAL Patient Dose: 500 mg Oral 2 times a day. glipiZIDE Sat Nov 02, 2019 12:59 CHANDRA Nogueira, Asad tablet extended release 24hr : Strength - 2.5 mg : ORAL Patient Dose: 2.5 mg Oral once a day. leflunomide Sat Nov 02, 2019 12:59 CHANDRA Nogueira, Asad tablet : Strength - 10 mg : ORAL Patient Dose: 10 mg Oral once a day. folic acid oral Sat Nov 02, 2019 13:00 CHANDRA Nogueira, Asad tablet : Strength - 1 mg : ORAL Patient Dose: 1 mg Oral once a day. Hospitalist History - Past Medical History Source: patient, family Other Medical History: PAST MEDICAL HISTORY: 1. Hypertension. 2. Degenerative joint disease. 3. Psoriasis. 4. Chronic low back pain. 5. Recurrent urinary tract infections. 6. History of fractured pelvis, status post fall. 7. Bilateral moderate carotid stenosis. 8. Anxiety. 9. Chronic Vertigo PAST SURGICAL HISTORY: 1. Hysterectomy in 1969. 2. Cholecystectomy in 2011. ALLERGIES: Patient is allergic to SULFA. CIPROFLOXACIN causes urinary retention per patient report. FAMILY HISTORY: Mother with CVA. SOCIAL HISTORY: Patient currently lives in Assisted living facilty. No smoking. She makes her own decision with the help of her family. 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 She has not completed [email or web address] paperwork. - Exam General Appearance: NAD, awake alert Eye: PERRL ENT: normocephalic atraumatic Neck: supple, symmetric, no JVD Heart: RRR, no murmur, no gallops, no rubs, normal peripheral pulses Respiratory: CTAB, no wheezes, no rales, no ronchi, normal chest expansion Gastrointestinal: soft, non-tender, non-distended, normal bowel sounds, no palpable masses, no hepatomegaly, no splenomegaly, no bruit, no guarding, no rigidity Extremities: no cyanosis, no clubbing, 2+ LE edema Skin: normal turgor Neurological: cranial nerve grossly intact, normal sensation to touch, no focal deficits Musculoskeletal: normal tone, normal strength, no muscle wasting Psychiatric: normal affect, normal behavior, A&O x 3, oriented to person, oriented to place, oriented to time Hospitalist Results - Labs Result Diagrams: 11/02/19 12:12 11/02/19 12:12 Lab results: WBC 8.8 thou/uL (4.8-10.8) 11/02/19 12:12 Hgb 12.1 g/dL (12.0-16.0) 11/02/19 12:12 Hct 37.4 % (36.0-47.0) 11/02/19 12:12 MCV 93.6 fL (78.0-98.0) 11/02/19 12:12 Plt Count 165 thou/uL (130-400) 11/02/19 12:12 Neutrophils % 82.4 % (42.0-75.0) H 11/02/19 12:12 Sodium 140 mmol/L (136-145) 11/02/19 12:12 Potassium 4.5 mmol/L (3.5-5.1) 11/02/19 12:12 Chloride 106 mmol/L (98-107) 11/02/19 12:12 Carbon Dioxide 27 mmol/L (23-31) 11/02/19 12:12 BUN 17 mg/dL (9.8-20.1) 11/02/19 12:12 Creatinine 0.87 mg/dL (0.6-1.1) 11/02/19 12:12 Glucose 121 mg/dL (83-110) H 11/02/19 12:12 Calcium 9.9 mg/dL (7.8-10.44) 11/02/19 12:12 Total Bilirubin 0.5 mg/dL (0.2-1.2) 11/02/19 12:12 AST 15 U/L (5-34) 11/02/19 12:12 ALT 7 U/L (8-55) L 11/02/19 12:12 Alkaline Phosphatase 88 U/L (40-110) 11/02/19 12:12 Creatine Kinase 95 U/L (29-168) 11/02/19 12:12 CK-MB (CK-2) 4.3 ng/mL (0-6.6) 11/02/19 12:12 Troponin I 0.040 ng/mL (< 0.028) H 11/02/19 12:12 Serum Total Protein 6.2 g/dL (6.0-8.3) 11/02/19 12:12 Albumin 3.8 g/dL (3.4-4.8) 11/02/19 12:12 Additional comment: Laboratory Tests 11/02/19 12:12 Troponin I 0.040 H - EKG Interpretation EKG: SRVIRIT - reviewed by me - Radiology Interpretation CT scan - head Status: image reviewed by me Additional Comment: CT OF BRAIN PERFORMED WITHOUT CONTRAST ENHANCEMENT: 11/02/19 HISTORY: Fall, syncope. The ventricular and cisternal system shows mild atrophy. There is no signs of intracerebral hemorrha ge or extraaxial fluid collections. Mastoid air cells and visualized sinuses are clear. IMPRESSION: No acute intracranial abnormalities. Chest x-ray Status: image reviewed by me Additional Comment: PORTABLE CHEST: HISTORY: Syncope, fall. FINDINGS: The patient is rotated on this exam. Heart size is enlarged. There are atherosclerotic changes of t he aorta. The lungs are clear of infiltrates. No signs of failure. The bones are demineralized. IMPRESSION: Cardiomegaly. Hospitalist H&P A/P - Plan Plan: Syncope/Recurrent falls - ?Cardiogenic CP HTN DM2 Hypothyroidism Chronic pain syndrome History of recurrent urinary tract infections Chronic insomnia Psoriasis Osteoporosis PLAN: Admit to Tele Serial troponins Vitals Q4h Orthostatic vitals QAM Verify home meds Echo Carotid Doppler PT/OT Fall precautions PRN HTN meds Insulin sliding scale
[2019-11-02] MEDS ORDERED: Senokot S 8.6-50 MG TAB PO PRN (13:57)
[2019-11-02] MEDS ORDERED: Nitroglycerin 0.4 MG TAB (25 Tab Bottle) PO PRN (14:06)
--- NOTE | 2019-11-02 14:12 | CT ---
CT OF BRAIN PERFORMED WITHOUT CONTRAST ENHANCEMENT: 11/02/19 HISTORY: Fall, syncope. The ventricular and cisternal system shows mild atrophy. There is no signs of intracerebral hemorrha ge or extraaxial fluid collections. Mastoid air cells and visualized sinuses are clear. IMPRESSION: No acute intracranial abnormalities. POS: MROIAH
[2019-11-02] MEDS ORDERED: Sodium Chloride 0.9% 1,000 ML IV SCH (14:15)
[2019-11-02] MEDS ORDERED: Dextrose 50% Abboject 50 ML SYRINGE SLOW IVP PRN (14:16)
[2019-11-02] MEDS ORDERED: Dextrose 5% in Water 1,000 ML IV PRN (14:16)
[2019-11-02] MEDS ORDERED: Insulin Regular 300 UNITS/3 ML VIAL SC PRN ×2 (14:16)
--- NOTE | 2019-11-02 14:16 | CT ---
CT OF CERVICAL SPINE PERFORMED WIHTOUT CONTRAST ENHANCEMENT: 11/02/19 HISTORY: Fall. Status post syncopal episode. Neck pain. The bones are demineralized. Approximately 4 mm of anterolisthesis of C4 on C5 with minimal disc narr owing. Moderate disc narrowing and osteophytic changes at the C6-7 level. There are fairly prominent degenerative facet changes noted. There is no evidence of fracture. There is some moderate right side d foraminal narrowing at C3-4. Bilateral foraminal stenosis with severe changes on the left at C4-5 a nd mild bilateral foraminal narrowing at C5-6 and moderate bilateral foraminal narrowing at C6-7. The lung apices are clear of infiltrates. Parenchymal scarring present. IMPRESSION: No CT evidence of fracture of the cervical spine. POS: MORIAH
[2019-11-02] MEDS ORDERED: hydrALAZINE 20 MG/ML VIAL SLOW IVP PRN (14:17)
[2019-11-02] MEDS ORDERED: Aspirin 81 mg Enteric Coated Tablet PO SCH (14:30)
--- NOTE | 2019-11-02 16:09 | ULT ---
BILTAERAL CAROTID DUPLEX ULTRASOUND: 11/02/19 HISTORY: Syncopal episode. Real time color Doppler evaluation of the right and left carotid system was performed. This shows mod erate plaque formation on the left and mild plaque formation at the right carotid bifurcation. On the right side, peak systolic velocities of the common carotid were 61 cm/s. internal carotid velo cities of 176 cm/s with diastolic velocities of 43 cm/s. External carotid velocities were 144 cm/s. L eft side showed common carotid velocities of 47 cm/s. Internal carotid velocities of 1d44 cm/s with d iastolic velocities of 26 cm/s. No flow was shown in the left external carotid artery. IMPRESSION: 50-69% stenosis of both internal carotid arteries by NASCET criteria based on peak systolic velocity measurements and ratios. POS: MORIAH
[2019-11-02] MEDS ORDERED: Meclizine HCl 25 MG TAB PO PRN (16:14)
[2019-11-02] MEDS ORDERED: metFORMIN 500 MG TAB PO SCH (17:00)
[2019-11-02 17:15] LABS: Troponin I 0.043 ng/mL (< 0.028)
[2019-11-02] MEDS ORDERED: Amlodipine 5 MG TAB PO SCH (18:00)
[2019-11-02 18:19] VITALS: BMI 17.9
[2019-11-02 19:28] LABS: Bacteria/HPF 1+ HPF (None Seen); Bilirubin Negative (Negative); Blood, Urine Negative (Negative); Clarity Clear (Clear); Glucose, Urine (Dipstick) Normal (Negative); Ketone, Urine Negative (Negative); Leukocyte Negative Leu/uL (Negative); Nitrite Negative (Negative); Protein, Urine (Dipstick) 10 mg/dL (Neg-Trace); RBC/HPF 0-3 HPF (0-3); Specific Gravity, Urine 1.006 (1.002-1.036); Squamous Epithelial 0-3 HPF (0-3); Urobilinogen Normal mg/dL (Less than 2); pH, Urine 7.5 (5.0-9.0)
[2019-11-02 19:29] LABS: Urine Culture Reflex Yes Yes
[2019-11-02] MEDS ORDERED: Famotidine 20 MG TAB PO SCH (21:00)
[2019-11-02] MEDS ORDERED: ALPRAZolam 0.25 MG TAB PO SCH (21:45)
[2019-11-03 05:15] LABS: Troponin I 0.073 ng/mL (< 0.028)
[2019-11-03] MEDS: Levothyroxine Sodium 25 MCG TAB PO SCH (05:52)
[2019-11-03] MEDS: Cyanocobalamin (Vitamin B-12) 1,000 MCG TAB PO SCH (08:17)
[2019-11-03] MEDS: Aspirin 81 mg Enteric Coated Tablet PO SCH (08:17)
[2019-11-03] MEDS: Amlodipine 5 MG TAB PO SCH (08:17)
[2019-11-03] MEDS: Folic Acid 1 MG TAB PO SCH (08:18)
[2019-11-03] MEDS: Ferrous Sulfate 325 MG TAB PO SCH (08:18)
[2019-11-03] MEDS: Furosemide 20 MG TAB PO SCH ×2 (08:18→13:53)
[2019-11-03] MEDS ORDERED: hydrALAZINE 20 MG/ML VIAL SLOW IVP PRN (08:40)
[2019-11-03] MEDS ORDERED: Folic Acid 1 MG TAB PO SCH (09:00)
[2019-11-03] MEDS ORDERED: Amlodipine 5 MG TAB PO SCH (09:00)
[2019-11-03] MEDS ORDERED: glipiZIDE 5 MG TAB PO SCH (09:00)
--- NOTE | 2019-11-03 09:32 | PDOC.HOSPP ---
- Subjective Encounter Date: 11/03/19 Encounter Time: 12:30 non-verbal Subjective: Patient seen and examined for CP. Had confusion earlier. Refused stress test. Overnight events noted. - Objective Vital Signs & Weight: Vital Signs (12 hours) Temp Pulse Resp BP BP BP BP 11/03/19 07:40 97.4 F L 58 L 14 148/74 H 133/80 173/79 H 11/03/19 04:00 97.5 F L 53 L 16 156/74 H 11/03/19 01:11 11/02/19 23:59 98.3 F 58 L 18 144/68 H Pulse Ox 11/03/19 07:40 99 11/03/19 04:00 97 11/03/19 01:11 97 11/02/19 23:59 97 Weight Weight 108 lb I&O: 11/02/19 11/03/19 11/04/19 06:59 06:59 06:59 Intake Total 300 Output Total 100 Balance 200 Result Diagrams: 11/02/19 12:12 11/02/19 12:12 Additional Labs: Accuchecks 11/03/19 11/03/19 11/02/19 08:34 05:53 20:57 POC Glucose 97 75 172 H 11/02/19 18:11 POC Glucose 89 Laboratory Tests 11/02/19 11/03/19 11/03/19 19:07 04:31 04:31 Troponin I Vitamin B12 518 Folate 16.20 Urine WBC 4-6 A Urine Bacteria 1+ A Urine Culture Reflexed Yes A 11/03/19 04:31 Troponin I 0.073 H Vitamin B12 Folate Urine WBC Urine Bacteria Urine Culture Reflexed EKG Reviewed by me: Yes (Tele SR) Hospitalist ROS - Review of Systems ROS unobtainable: due to mental status - Medication Medications: Active Medications Generic Name Dose Route Start Last Admin Trade Name Freq PRN Reason Stop Dose Admin Amlodipine Besylate 5 mg 11/03/19 09:00 11/03/19 08:17 Norvasc PO 5 mg DAILY YAKELIN Administration Aspirin 81 mg 11/03/19 09:00 11/03/19 08:17 Ecotrin PO 81 mg DAILY YAKELIN Administration Cyanocobalamin 1,000 mcg 11/03/19 09:00 11/03/19 08:17 Vitamin B-12 PO 1,000 mcg DAILY YAKELIN Administration Ferrous Sulfate 325 mg 11/03/19 09:00 11/03/19 08:18 Feosol PO 325 mg DAILY YAKELIN Administration Folic Acid 1 mg 11/03/19 09:00 11/03/19 08:18 Folvite PO Not Given DAILY YAKELIN Furosemide 20 mg 11/03/19 09:00 11/03/19 08:18 Lasix PO 20 mg 0900,1400 YAKELIN Administration Levothyroxine Sodium 25 mcg 11/03/19 06:00 11/03/19 05:52 Synthroid PO 25 mcg 0600 YAKELIN Administration - Exam General Appearance: NAD Heart: RRR, no gallops, no rubs, normal peripheral pulses Respiratory: no wheezes, no rales, no ronchi, normal chest expansion Gastrointestinal: non-tender, non-distended, no guarding, no rigidity Extremities: no cyanosis, no clubbing, no edema Extremities - other findings: no calf tenderness Psychiatric - other findings: Neuro/Psych - cannot assess due to current mentation Hosp A/P - Plan PT/OT, DVT proph w/heparin, DVT proph w/SCDs Gen weakness/Syncope/Recurrent falls - ?Cardiogenic CP UTI - POA - Prob causing gen weakness and recurrent falls HTN DM2 B/L moderate Carotid stenosis Hypothyroidism Chronic pain syndrome History of recurrent urinary tract infections Chronic insomnia Psoriasis Osteoporosis Chronic vertigo on PRN meclizine PLAN: 11/02 Add Ceftriaxone Echo - normal EF Cont low dose ASA Cardio input appreciated Await urine cultures Will prob need 24 hr care at Assisted living vs Inpt Rehab eval Cont other meds as above AM labs Check Post void residual 11/01 Admit to Tele Serial troponins Vitals Q4h Orthostatic vitals QAM Verify home meds Echo Carotid Doppler PT/OT Fall precautions PRN HTN meds Insulin sliding scale
[2019-11-03] MEDS: cefTRIAXone\\ROCEPHIN 1 GM in Sodium Chloride 0.9% 100 ML IVPB SCH ×2 (10:47→13:00)
[2019-11-03] MEDS ORDERED: Lorazepam 2 MG/ML VIAL SLOW IVP SCH (11:15)
--- NOTE | 2019-11-03 11:27 | CON ---
DATE OF CONSULTATION: 11/03/2019 REASON FOR CONSULTATION: Sinus bradycardia, possible syncopal episodes. HISTORY OF PRESENT ILLNESS: Ms. Shreya Lake is a pleasant 89-year-old woman, who came to the emergency room yesterday. She felt dizzy and apparently may have lost consciousness. She has fallen multiple times in last 4 or 5 weeks. The patient actually has a very poor memory and does not remember any of these episodes. REVIEW OF SYSTEMS: Documented in chart. CONSTITUTIONAL: No significant weight gain or loss. VISION: No changes. HEARING: No changes. PULMONARY: No cough or wheezing. CARDIAC: No chest pain. GASTROINTESTINAL: No nausea, vomiting, or diarrhea, but the patient's memory is very impaired, so I do not know how accurate these are. MEDICATIONS: At home; 1. Levothyroxine. 2. Iron. 3. Lasix. 4. Amlodipine. 5. Glipizide. PAST MEDICAL HISTORY: Hypertension. No previous cardiac history. PAST SURGICAL HISTORY: Hysterectomy in 1969, cholecystectomy in 2011. FAMILY HISTORY: Mother with a stroke. SOCIAL HISTORY: Lives in assisted living. PHYSICAL EXAMINATION: GENERAL: This is a very pleasant elderly woman. VITAL SIGNS: Blood pressure is 173/79, standing is 133/80; pulse 58, sinus. LUNGS: Clear. CARDIAC: Normal S1. Normal S2. There is no murmur, rub, or gallop. ABDOMEN: Soft and nontender. No hepatosplenomegaly. EXTREMITIES: Warm, dry. No clubbing or cyanosis. There is no edema. IMAGING DATA: EKG reveals sinus rhythm, sinus bradycardia and some junctional rhythm. There was an episode with accelerated junctional rhythm, rate of 80. There is sinus bradycardia, rate of 54 and an EKG, sinus bradycardia rate of 48 the lowest that I see, that was at 2:56 a.m., however, it looks like it is junctional rhythm with inverted P waves at 2256 hours prior to sleeping. The EKG also shows possible old septal infarct. QRS duration is 0.118. ASSESSMENT: 1. Some element of sick sinus syndrome with accelerated junctional rhythms and sinus rhythms as low as 48. 2. Very impaired memory. She cannot recall any of these episodes. PLAN: 1. Echocardiogram and stress testing to be done. She has had some chest pain that sounds musculoskeletal. 2. Continue to monitor to see whether pacemaker would be indicated. Job ID: [id number]
[2019-11-03 12:22] LABS: SARS-CoV-2 MS2 Positive; SARS-CoV-2 N Gene Negative; SARS-CoV-2 S Gene Negative; SARS-CoV-2 by NAA Not Detected (NotDetected); SARS-CoV-2 orf1ab Negative
--- NOTE | 2019-11-03 12:52 | PRG ---
DATE OF SERVICE: 11/03/2019 SUBJECTIVE: Ms. Lake became very upset and somewhat agitated when she was going to be brought down for stress testing. The patient is not able to cooperate with stress testing at this time. Stress test will be canceled. We will continue to monitor her. The echocardiogram showed normal left ventricular function. At this point, we have not seen low enough heart rate to justify pacemaker insertion. We will continue to monitor totally still tomorrow. Job ID: [id number]
--- NOTE | 2019-11-03 12:56 | RAD ---
LEFT RIBS 2 VIEWS: HISTORY: Rib pain, recurrent falls. FINDINGS: Marked arthritic changes of the left shoulder are noted. The bones are demineralized. No pneumothorax. I do not appreciate any definite acute rib fracture. IMPRESSION: No acute fracture. POS: MORIAH
--- NOTE | 2019-11-03 13:03 | RAD ---
RIGHT RIBS 2 VIEWS: HISTORY: Rib pain, frequent falls. FINDINGS: The bones are demineralized. No pneumothorax or pleural effusion. I do not appreciate any definite acute rib fractures. IMPRESSION: No acute fractures. POS: MORIAH
[2019-11-03] MEDS: Dextrose 5 % And 0.9 % NaCl 1,000 ML IV SCH (14:55)
[2019-11-03] MEDS: traMADol HCl 50 MG TAB PO PRN ×2 (15:04→22:04)
[2019-11-03] MEDS: Famotidine 20 MG TAB PO SCH (22:04)
[2019-11-03] MEDS: Heparin 5,000 UNITS/ML VIAL SC SCH (22:11)
[2019-11-04 04:23] LABS: #Eosinphils 0.2 thou/uL (0.0-0.7); #Monocytes 0.6 thou/uL (0.11-0.59); #Neutrophils 5.2 thou/uL (1.40-6.50); %Basophils 0.2 % (0.0-1.0); %Eosinophils 2.3 % (0.0-10.0); %Lymphocytes 14.1 % (21.0-51.0); %Monocytes 8.1 % (0.0-10.0); %Neutrophils 75.3 % (42.0-75.0); Hemoglobin 12.7 g/dL (12.0-16.0); Mean Corpuscular HGB CONC 31.2 g/dL (32.0-36.0); Mean Corpuscular Hemoglobin 29.1 pg (27.0-31.0); Mean Corpuscular Volume 93.3 fL (78.0-98.0); Mean Platelet Volume 8.9 fL (7.4-10.4); Platelet Count 166 thou/uL (130-400); RBC Distribution Width 12.7 % (11.5-14.5); Red Blood Cell (RBC) Count 4.36 mill/uL (4.20-5.40); White Blood Cell (WBC) Count 6.9 thou/uL (4.8-10.8)
[2019-11-04 04:44] LABS: ALT (SGPT) 10 U/L (8-55); AST (SGOT) 10 U/L (5-34); Albumin 3.6 g/dL (3.4-4.8); Alkaline Phosphatase 80 U/L (40-110); Anion Gap 9 mmol/L (10-20); BUN (Urea Nitrogen) 19 mg/dL (9.8-20.1); Bilirubin, Total 0.3 mg/dL (0.2-1.2); Calc. Creatinine Clearance 34 mL/min (70-130); Calcium 10.2 mg/dL (7.8-10.44); Carbon Dioxide 32 mmol/L (23-31); Chloride 104 mmol/L (98-107); Estimated GFR-MDRD 61; Globulin 2.6 g/dL (2.4-3.5); Glucose 123 mg/dL (83-110); Magnesium 1.6 mg/dL (1.6-2.6); Potassium 3.7 mmol/L (3.5-5.1); Protein, Total 6.2 g/dL (6.0-8.3); Sodium 141 mmol/L (136-145)
[2019-11-04] MEDS: Levothyroxine Sodium 25 MCG TAB PO SCH (05:18)
[2019-11-04] MEDS: Amlodipine 5 MG TAB PO SCH (09:15)
[2019-11-04] MEDS: Folic Acid 1 MG TAB PO SCH (09:15)
[2019-11-04] MEDS: Aspirin 81 mg Enteric Coated Tablet PO SCH (09:15)
[2019-11-04] MEDS: Cyanocobalamin (Vitamin B-12) 1,000 MCG TAB PO SCH (09:16)
[2019-11-04] MEDS: Heparin 5,000 UNITS/ML VIAL SC SCH ×2 (09:16→21:01)
[2019-11-04] MEDS: Furosemide 20 MG TAB PO SCH ×2 (09:16→14:18)
[2019-11-04] MEDS: Ferrous Sulfate 325 MG TAB PO SCH (09:16)
[2019-11-04] MEDS: cefTRIAXone\\ROCEPHIN 1 GM in Sodium Chloride 0.9% 100 ML IVPB SCH (10:25)
[2019-11-04] MEDS: Dextrose 5 % And 0.9 % NaCl 1,000 ML IV SCH (10:40)
[2019-11-04] MEDS: traMADol HCl 50 MG TAB PO PRN (11:22)
[2019-11-04] MEDS ORDERED: Magnesium 2 GM/50 ML 2 GM in Premix Bag 1 BAG IVPB SCH (13:15)
--- NOTE | 2019-11-04 13:34 | PRG ---
DATE OF SERVICE: 11/04/2019 Ms. Lake has not had any clinically significant bradyarrhythmias. We tried to do a stress test yesterday, but she was much too confused to cooperate. At this time, we have no evidence that a pacemaker is indicated. The patient was extremely confused. I do not think she would probably wear a monitor discharged her home with one. The patient from my standpoint can be released at any time. several days with no significant bradyarrhythmias. The echocardiogram showed normal left ventricular function. Job ID: [id number]
--- NOTE | 2019-11-04 14:44 | PDOC.HOSPP ---
- Subjective Encounter Date: 11/04/19 Encounter Time: 12:30 Subjective: Patient was assessed for syncope. Remains confused. No overnight events. Patient reports no pain. - Objective Vital Signs & Weight: Vital Signs (12 hours) Temp Pulse Pulse Pulse Resp BP BP 11/04/19 10:10 62 63 180/76 H 11/04/19 09:15 67 150/69 H 11/04/19 08:00 98.2 F 59 L 16 11/04/19 04:56 98.0 F 57 L 16 BP BP Pulse Ox 11/04/19 10:10 182/73 H 11/04/19 09:15 11/04/19 08:00 152/68 H 96 11/04/19 04:56 156/68 H 95 Weight Admit Weight 108 lb Weight 107 lb 14.4 oz I&O: 11/03/19 11/04/19 11/05/19 06:59 06:59 06:59 Intake Total 300 1429 240 Output Total 100 525 Balance 200 904 240 Result Diagrams: 11/04/19 03:59 11/04/19 03:59 Additional Labs: Accuchecks 11/04/19 11/04/19 11/03/19 10:52 05:57 22:08 POC Glucose 150 H 76 170 H 11/03/19 16:24 POC Glucose 139 H EKG Reviewed by me: Yes (Tele SR) Hospitalist ROS - Review of Systems Constitutional: denies: fever, chills, sweats, weakness, malaise, other Respiratory: denies: cough, dry, shortness of breath, hemoptysis, SOB with excertion, pleuritic pain, sputum, wheezing, other Cardiovascular: denies: chest pain, palpitations, orthopnea, paroxysmal noc. dyspnea, edema, light headedness, other Gastrointestinal: denies: nausea, vomiting, abdominal pain, diarrhea, constipation, melena, hematochezia, other - Medication Medications: Active Medications Generic Name Dose Route Start Last Admin Trade Name Freq PRN Reason Stop Dose Admin Amlodipine Besylate 5 mg 11/03/19 09:00 11/04/19 09:15 Norvasc PO 5 mg DAILY YAKELIN Administration Aspirin 81 mg 11/03/19 09:00 11/04/19 09:15 Ecotrin PO 81 mg DAILY YAKELIN Administration Cyanocobalamin 1,000 mcg 11/03/19 09:00 11/04/19 09:16 Vitamin B-12 PO 1,000 mcg DAILY YAKELIN Administration Famotidine 20 mg 11/03/19 21:00 11/03/19 22:04 Pepcid PO 20 mg QPM YAKELIN Administration Ferrous Sulfate 325 mg 11/03/19 09:00 11/04/19 09:16 Feosol PO 325 mg DAILY YAKELIN Administration Folic Acid 1 mg 11/03/19 09:00 11/04/19 09:15 Folvite PO 1 mg DAILY YAKELIN Administration Furosemide 20 mg 11/03/19 09:00 11/04/19 14:18 Lasix PO 20 mg 0900,1400 YAKELIN Administration Heparin Sodium (Porcine) 5,000 units 11/03/19 21:00 11/04/19 09:16 Heparin SC 5,000 units BID YAKELIN Administration Hydralazine HCl 10 mg 11/03/19 08:40 11/03/19 11:49 Apresoline SLOW IVP 10 mg Q4H PRN Administration Standing sbp Greater Than 160 Ceftriaxone Sodium 1 gm/ 100 mls @ 200 mls/hr 11/03/19 10:00 11/04/19 10:25 Sodium Chloride IVPB 100 mls Q24HR YAKELIN Administration Dextrose/Sodium Chloride 1,000 mls @ 50 mls/hr 11/03/19 14:30 11/04/19 10:40 D5 0.9% Ns IV 1,000 mls .Q20H YAKELIN Administration Magnesium Sulfate 2 gm/ Device 50 mls @ 100 mls/hr 11/04/19 13:15 11/04/19 14 :18 IVPB 11/04/19 16:00 50 mls NOW YAKELIN Administration Levothyroxine Sodium 25 mcg 11/03/19 06:00 11/04/19 05:18 Synthroid PO 25 mcg 0600 YAKELIN Administration Tramadol HCl 50 mg 11/02/19 17:00 11/04/19 11:22 Ultram PO 50 mg Q6H PRN Administration Pain - Exam General Appearance: awake alert Heart: RRR, no murmur, no gallops, no rubs, normal peripheral pulses Respiratory: CTAB, no wheezes, no rales, no ronchi, normal chest expansion, no tachypnea, normal percussion Gastrointestinal: soft, non-tender, non-distended, normal bowel sounds, no palpable masses, no hepatomegaly, no splenomegaly, no bruit, no guarding, no rigidity Hosp A/P - Plan DVT proph w/SCDs Gen weakness/Syncope/Recurrent falls - ?Cardiogenic CP/Near syncope/gen weakness and recurrent falls UTI HTN DM2 B/L moderate Carotid stenosis Hypothyroidism Chronic pain syndrome History of recurrent urinary tract infections Chronic insomnia Psoriasis Osteoporosis Chronic vertigo on PRN meclizine Hypomagnesemia PLAN: 11/03 Remains confused Cardio signed off Will need upgrade to Assisting living from Independent living - Family requested some time to sort this out. Pt also will need caregiver. CM working on safe dc planning Will get assistance from Palliative/Spiritual care Cont other meds Stable to dc once accepted at Assisting living facility DC Ceftriaxone - change Atbx to PO Replace Magnesium 11/02 Add Ceftriaxone Echo - normal EF Cont low dose ASA Cardio input appreciated Await urine cultures Will prob need 24 hr care at Assisted living vs Inpt Rehab eval Cont other meds as above AM labs Check Post void residual 11/01 Admit to Tele Serial troponins Vitals Q4h Orthostatic vitals QAM Verify home meds Echo Carotid Doppler PT/OT Fall precautions PRN HTN meds Insulin sliding scale
[2019-11-04] MEDS: Famotidine 20 MG TAB PO SCH (21:00)
[2019-11-05 04:46] LABS: #Eosinphils 0.2 thou/uL (0.0-0.7); #Lymphocytes 0.9 thou/uL (1.20-3.40); #Monocytes 0.5 thou/uL (0.11-0.59); #Neutrophils 3.8 thou/uL (1.40-6.50); %Basophils 0.9 % (0.0-1.0); %Eosinophils 4.4 % (0.0-10.0); %Lymphocytes 16.4 % (21.0-51.0); %Monocytes 9.7 % (0.0-10.0); %Neutrophils 68.7 % (42.0-75.0); Hemoglobin 12.3 g/dL (12.0-16.0); Mean Corpuscular HGB CONC 32.3 g/dL (32.0-36.0); Mean Corpuscular Hemoglobin 30.4 pg (27.0-31.0); Mean Corpuscular Volume 94.1 fL (78.0-98.0); Mean Platelet Volume 8.5 fL (7.4-10.4); Platelet Count 156 thou/uL (130-400); RBC Distribution Width 12.7 % (11.5-14.5); Red Blood Cell (RBC) Count 4.04 mill/uL (4.20-5.40); White Blood Cell (WBC) Count 5.5 thou/uL (4.8-10.8)
[2019-11-05 05:10] LABS: ALT (SGPT) 7 U/L (8-55); AST (SGOT) 11 U/L (5-34); Albumin 3.5 g/dL (3.4-4.8); Alkaline Phosphatase 77 U/L (40-110); Anion Gap 8 mmol/L (10-20); BUN (Urea Nitrogen) 14 mg/dL (9.8-20.1); Bilirubin, Total 0.3 mg/dL (0.2-1.2); Calc. Creatinine Clearance 42 mL/min (70-130); Calcium 9.9 mg/dL (7.8-10.44); Carbon Dioxide 31 mmol/L (23-31); Chloride 103 mmol/L (98-107); Estimated GFR-MDRD 78; Globulin 2.4 g/dL (2.4-3.5); Glucose 105 mg/dL (83-110); Magnesium 1.7 mg/dL (1.6-2.6); Potassium 3.4 mmol/L (3.5-5.1); Protein, Total 5.9 g/dL (6.0-8.3); Sodium 139 mmol/L (136-145)
[2019-11-05] MEDS: Levothyroxine Sodium 25 MCG TAB PO SCH (05:36)
[2019-11-05 08:11] VITALS: TEMP 98.1
[2019-11-05] MEDS: Aspirin 81 mg Enteric Coated Tablet PO SCH (08:12)
[2019-11-05] MEDS: Cyanocobalamin (Vitamin B-12) 1,000 MCG TAB PO SCH (08:12)
[2019-11-05] MEDS: Furosemide 20 MG TAB PO SCH ×2 (08:12→13:47)
[2019-11-05] MEDS: Heparin 5,000 UNITS/ML VIAL SC SCH (08:12)
[2019-11-05] MEDS: Ferrous Sulfate 325 MG TAB PO SCH (08:12)
[2019-11-05] MEDS: Folic Acid 1 MG TAB PO SCH (08:12)
[2019-11-05] MEDS: Amlodipine 5 MG TAB PO SCH (08:12)
[2019-11-05] MEDS: Dextrose 5 % And 0.9 % NaCl 1,000 ML IV SCH (08:13)
[2019-11-05] MEDS ORDERED: Cefdinir 300 MG CAP PO SCH (09:00)
[2019-11-05] MEDS: traMADol HCl 50 MG TAB PO PRN (10:29)
--- NOTE | 2019-11-05 13:29 | DIS ---
DATE OF ADMISSION: 11/02/2019 DATE OF DISCHARGE: 11/05/2019 DISCHARGE DISPOSITION: Assisted living facility. The patient was seen and examined on the day of discharge. No new chest pain, shortness of breath or palpitations reported. DISCHARGE MEDICATIONS: Same as admission medication, no changes were made. FOLLOWUP: 1. Follow up with Dr. Abner Kendall in 1 week. 2. Home health care through [facility] will be arranged. 3. Follow up with Dr. Wolff in 2 weeks. BRIEF HOSPITAL COURSE: The patient is an 89-year-old female, residing at independent living, presented to the hospital with dizziness, fall with questionable syncope. Please refer to the history and physical for further details. The patient was admitted to the hospital with the above diagnosis. An echocardiogram was obtained, that showed ejection fraction 50% to 55% with moderate tricuspid regurgitation. A stress test was ordered; however, the patient did not cooperate for the stress test. Carotid Doppler showed 50% to 69% stenosis in both internal carotid artery. The patient has been cleared by Cardiology for discharge. Due to history of recurrent falls, the patient will be upgraded to assisted living with caregiver. There was no significant arrhythmias noted on the technical instructor course developer. FINAL DIAGNOSES: 1. Generalized weakness with recurrent falls and questionable syncope of unclear etiology. 2. Questionable urinary tract infection. The patient was placed empirically on antibiotics. We will discontinue antibiotics since the cultures show less than 10,000 mixed skin julieth. 3. Hypertension. 4. Diabetes mellitus, type 2. 5. Bilateral carotid artery stenosis. Primary care physician advised to follow. 6. Hypothyroidism. 7. Chronic pain syndrome. 8. History of recurrent urinary tract infections. 9. Chronic insomnia. 10. Psoriasis. 11. Osteoporosis. 12. Chronic vertigo and p.r.n. meclizine, probably contributing to dizziness. 13. Hypomagnesemia, replaced. The care plan was discussed with the family in detail. They stated understanding. Job ID: [id number]
[2019-11-05 13:36] VITALS: BP 146/77
--- NOTE | 2019-11-07 11:10 | EKG ---
Test Reason : Blood Pressure : / mmHG Vent. Rate : 054 BPM Atrial Rate : 054 BPM P-R Int : 120 ms QRS Dur : 118 ms QT Int : 458 ms P-R-T Axes : -10 -55 106 degrees QTc Int : 434 ms Sinus bradycardia Left axis deviation Septal infarct , age undetermined Abnormal ECG Confirmed by MARICHUY PATEL M.D. ([id number] on 11/07/2019 11:10:17 AM Referred By: CHOCO Confirmed By:MARICHUY PATEL M.D.
== END 2019-11-05 14:05 ==
LOC: ERS 12:00 → 2NO 17:04
PROVIDERS: ADMIT Internal Medicine; ATTEND Internal Medicine
DX: R55 Syncope and collapse (principal); R42 Dizziness and giddiness; R07.9 Chest pain, unspecified; R53.1 Weakness; R29.6 Repeated falls; I10 Essential (primary) hypertension; E11.9 Type 2 diabetes mellitus without complications; I65.23 Occlusion and stenosis of bilateral carotid arteries; E03.9 Hypothyroidism, unspecified; G89.4 Chronic pain syndrome; F51.04 Psychophysiologic insomnia; L40.9 Psoriasis, unspecified; M81.0 Age-related osteoporosis without current pathological fracture; E83.42 Hypomagnesemia; Z79.84 Long term (current) use of oral hypoglycemic drugs; Z79.899 Other long term (current) drug therapy; Z88.1 Allergy status to other antibiotic agents; Z88.2 Allergy status to sulfonamides
CPT/HCPCS: 70450; 71045; 71100 ×2; 72125; 80053 ×3; 81001; 82550; 82553; 82607; 82746; 82962 ×4; 83735 ×2; 83880; 84484 ×3; 85025 ×3; 87086; 93005 ×2; 93306; 93880; 94760 ×3; 97110; 97116 ×2; 97139 ×2; 97530; 97535; 99285; U0003; 36415; 36416; 87635; 93010; 96361; 96372; 96374; 96375; 96376; G0378; J0360; J0696; J1644; J2060; J3475; J3490